=== PATIENT | female | born 1985 | race Caucasian/White ===

== ENCOUNTER 2016-12-23 18:31 | Emergency (ER) | payer OTHER ==
[~2016-12-23] VITALS: Ht 165.1 cm; Wt 50.1 kg
[2016-12-23] MEDS ORDERED: FLUORESCEIN OPHTHALMIC 1 MG STRIP EACHEYE ONE (19:00)
[2016-12-23] MEDS ORDERED: PROPARACAINE OPHTH 0.5%, 15ML EACHEYE ONE (19:00)
[2016-12-23] MEDS ORDERED: PROPARACAINE OPHTH 0.5%, 15ML ONE (19:07)
[2016-12-23 20:02] VITALS: BP 131/81
== END 2016-12-23 20:04 | disposition home or self-care (01) ==
LOC: ED 19:37
DX: H11.31 Conjunctival hemorrhage, right eye (principal)
CPT/HCPCS: 99283